=== PATIENT | female | born 1970 | race Two or more races ===

== ENCOUNTER 2018-08-31 14:46 | Emergency (ER) | payer OTHER ==
[2018-08-31 15:02] VITALS: BMI 25.2
[2018-08-31] MEDS ORDERED: LISINOPRIL 10 MG TABLET (FP) PO ONE (15:15)
[2018-08-31] MEDS ORDERED: ACETAMINOPHEN 500 MG TABLET (FP) PO ONE (15:15)
[2018-08-31] MEDS ORDERED: METOCLOPRAMIDE HCL INJECTION 10 MG/2 ML VIAL IVPUSH ONE (15:15)
[2018-08-31] MEDS ORDERED: SODIUM CHLORIDE 1,000 ML IV STA (15:16)
[2018-08-31] MEDS ORDERED: LISINOPRIL 5 MG TABLET (FP) ONE (15:19)
[2018-08-31] MEDS ORDERED: METOCLOPRAMIDE HCL INJECTION 10 MG/2 ML VIAL ONE (15:19)
--- NOTE | 2018-08-31 15:21 | PDOC ---
History of Present Illness - General Chief Complaint: Headache Stated Complaint: Blood Pressure Problem Time Seen by Provider: 08/31/18 14:49 History Source: Patient Exam Limitations: No Limitations - History of Present Illness Initial Comments: 48 y/o F hx of HTN and migraine presents with mild generalized SANDHU that started around 9 PM today and progressively became worse around 11 AM. She took 2 Advils without much relief in pain so she went to see her PCP, Dr. Tinajero, and was sent to ED immediately as her BP there was around 180/110. 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 Also mentions having slight blurred vision. Patient also mentions having intermittent substernal CP over the past month which is non-exertional; states she did not have any chest pain today. Otherwise she denies fever, sob, abd pain, n/v, numbness, tingling, weakness of extremities, dizziness, gait changes. 08/31/18 15:30 Past History - Past Medical History Allergies/Adverse Reactions: Allergies Allergy/AdvReac Type Severity Reaction Status Date / Time No Known Allergies Allergy Unverified 08/31/18 15:02 Home Medications: Ambulatory Orders Cholecalciferol (Vitamin D3) [Vitamin D3] 50,000 unit PO WEEKLY 08/31/18 Lisinopril 10 mg PO DAILY 08/31/18 Oxycodone HCl 10 mg PO BID 08/31/18 COPD: No HTN: Yes Other medical history: Migraine headache - Suicide/Smoking/Psychosocial Hx Smoking History: Current every day smoker Number of Cigarettes Smoked Daily: 2 Information on smoking cessation initiated: No Hx Alcohol Use: No (denies) Drug/Substance Use Hx: No (denies) Substance Use Type: None Review of Systems - Review of Systems Constitutional: No: Chills, Fever HEENTM: Yes: Double Vision Respiratory: No: Shortness of Breath Cardiac (ROS): Yes: Chest Pain ABD/GI: No: Nausea, Vomiting Neurological: Yes: See HPI *Physical Exam - Vital Signs Last Vital Signs Temp Pulse Resp BP Pulse Ox 98.8 F 84 18 183/101 H 100 08/31/18 14:54 08/31/18 14:54 08/31/18 14:54 08/31/18 14:54 08/31/18 14:54 - Physical Exam General Appearance: Yes: Other (Patient in mild distress as states the light is bothering her) HEENT: positive: YUAN Respiratory/Chest: positive: Lungs Clear, Normal Breath Sounds. negative: Respiratory Distress Cardiovascular: positive: Regular Rhythm, Regular Rate, S1, S2. negative: Murmur Gastrointestinal/Abdominal: positive: Normal Bowel Sounds. 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 negative: Abnormal Cranial NS, EOM Palsy, Facial Droop, Numbness, Sensory Deficit, Confused, Disoriented Heart Score/ECG Review #1 General ECG Interpretation: Sinus Rhythm, Normal Rate, Normal Intervals, No acute ischemic changes ED Treatment Course - LABORATORY CBC & Chemistry Diagram: 08/31/18 15:25 08/31/18 15:25 Medical Decision Making - Medical Decision Making 48 y/o F hx of migraine and HTN with headache likely due to uncontrolled HTN. Patient with no focal deficits so less concerned for stroke. Will obtain basic labs to check for end organ damage. Will give NS bolus x1, Tylenol, Reglan, Lisinopril and reassess. Patient also with complain of intermittent CP x1 month. Given CP is nonexertional and nonischemic EKG, less suspicious for acute VA. Unlikely CHF given no sign of fluid overload; unlikely pneumonia given no fever or cough; PE also unlikely given no risk factors and PERC score is 0. Patient with no CP today. Will obtain troponin and CXR given risk factors of HTN and smoking history. 08/31/18 15:39 Repeat BP was 133/73 Patient feeling a lot better with improvement in headache CXR and CT head were negative Labs were unremarkable Advised patient to follow-up with her PCP Rx for Lisinopril 10 mg sent to patient's pharmacy 08/31/18 18:20 *DC/Admit/Observation/Transfer Diagnosis at time of Disposition: Elevated blood pressure reading - Referrals Referrals: Obdulia Tinajero MD [Primary Care Provider] - - Patient Instructions - Post Discharge Activity
--- NOTE | 2018-08-31 15:40 | PDOC ---
*Physical Exam - Vital Signs Last Vital Signs Temp Pulse Resp BP Pulse Ox 98.8 F 84 18 183/101 H 100 08/31/18 14:54 08/31/18 14:54 08/31/18 14:54 08/31/18 14:54 08/31/18 14:54 - Physical Exam Comments: 08/31/18 15:37 Blood pressure 183/109, heart rate normal, O2 sat normal. Patient is well-appearing, conversant, eyes open with slight cough Sinuses are nontender, pupils are equal round reactive to light, extraocular movements are intact, no nystagmus Speech is clear, no carotid bruits, neck is supple Heart is regular without murmurs, lungs are clear, abdomen benign, no edema NEURO: Mental status: The patient is alert and oriented x3. Cranial nerves: Cranial nerves II through XII are intact Motor: The upper extremities are 5 over 5 in all muscle groups. The lower extremities are 5 over 5 in all muscle groups. No pronator drift. Sensation: Sensation is intact to light touch throughout. Cerebellar: Ipopeh-lwfonf-opbr is normal in both upper extremities. Heel-knee- venegas is normal in both lower extremities. Reflexes: 2+ and symmetric in the upper and lower extremities. Gait: Normal. Heel and toe walking are normal. Tandem gait is normal. ED Treatment Course - Medications Given in the ED: ED Medications Discontinued Medications Generic Name Dose Route Start Last Admin Trade Name Freq PRN Reason Stop Dose Admin Acetaminophen 1,000 mg 08/31/18 15:15 08/31/18 15:35 Tylenol - PO 08/31/18 15:16 1,000 mg ONCE ONE Administration Lisinopril 10 mg 08/31/18 15:15 08/31/18 15:35 Prinivil PO 08/31/18 15:16 10 mg ONCE ONE Administration Metoclopramide HCl 10 mg 08/31/18 15:15 08/31/18 15:35 Reglan Injection - IVPUSH 08/31/18 15:16 10 mg ONCE ONE Administration Medical Decision Making - Medical Decision Making 08/31/18 15:38 48-year-old female with History of hypertension, noncompliant with medications for 1 month, sent from PCP office after presenting for routine follow-up visit with complaint of headache. Hypertensive in the emergency department, neurologically intact, but complaining of some blurry vision today. Labs including troponin Chest x-ray, EKG CT head Dose her usual lisinopril, Reglan for headache and nausea Reassess *DC/Admit/Observation/Transfer Diagnosis at time of Disposition: Elevated blood pressure reading - Referrals Referrals: Obdulia Tinajero MD [Primary Care Provider] - - Patient Instructions - Post Discharge Activity
[2018-08-31 15:42] LABS: BASO % 1.3 % (0-2.0); EOS % 7.9 % (0-4.5); HEMATOCRIT 38.3 % (32.4-45.2); HEMOGLOBIN 12.7 GM/dL (10.7-15.3); LYMPH % 39.8 % (8-40); MCH 28.5 pg (25.7-33.7); MCHC 33.2 g/dl (32.0-36.0); MEAN CELL VOLUME 85.8 fl (80-96); MEAN PLT VOLUME 8.4 fl (7.5-11.1); MONO % 5.4 % (3.8-10.2); NEUT % 45.6 % (42.8-82.8); PLATELET COUNT 223 K/MM3 (134-434); RBC 4.46 M/mm3 (3.60-5.2); RDW 14.3 % (11.6-15.6); WHITE BLOOD COUNT 4.5 K/mm3 (4.0-10.0)
[2018-08-31 16:07] LABS: ANION GAP 8 MMOL/L (8-16); BLOOD UREA NITROGEN 17 mg/dL (7-18); CALCIUM 8.4 mg/dL (8.5-10.1); CHLORIDE 109 mmol/L (98-107); CO2 26 mmol/L (21-32); CREATININE 0.7 mg/dL (0.55-1.3); GLUCOSE,RANDOM 76 mg/dL (74-106); POTASSIUM 3.7 mmol/L (3.5-5.1); SODIUM 143 mmol/L (136-145)
--- NOTE | 2018-08-31 18:30 | PDOC ---
*Physical Exam - Vital Signs Last Vital Signs Temp Pulse Resp BP Pulse Ox 98.8 F 78 17 133/73 98 08/31/18 14:54 08/31/18 16:44 08/31/18 16:44 08/31/18 16:44 08/31/18 16:44 ED Treatment Course - LABORATORY CBC & Chemistry Diagram: 08/31/18 15:25 08/31/18 15:25 - ADDITIONAL ORDERS Additional order review: Laboratory Results 08/31/18 08/31/18 15:25 15:25 Sodium 143 Potassium 3.7 Chloride 109 H Carbon Dioxide 26 Anion Gap 8 BUN 17 Creatinine 0.7 Creat Clearance w eGFR > 60 Random Glucose 76 Calcium 8.4 L Troponin I < 0.02 Serum , Qual Negative 08/31/18 15:25 RBC 4.46 MCV 85.8 MCHC 33.2 RDW 14.3 MPV 8.4 Neutrophils % 45.6 Lymphocytes % 39.8 Monocytes % 5.4 Eosinophils % 7.9 H Basophils % 1.3 - RADIOLOGY Radiology Studies Ordered: Category Date Time Status HEAD CT WITHOUT CONTRAST [CT] Stat CT Scan 08/31/18 17:25 Completed CHEST PA & LAT [RAD] Stat Radiology 08/31/18 16:16 Completed - Medications Given in the ED: ED Medications Discontinued Medications Generic Name Dose Route Start Last Admin Trade Name Nicky PRN Reason Stop Dose Admin Acetaminophen 1,000 mg 08/31/18 15:15 08/31/18 15:35 Tylenol - PO 08/31/18 15:16 1,000 mg ONCE ONE Administration Sodium Chloride 1,000 mls @ 1,000 mls/hr 08/31/18 15:16 08/31/18 15:35 Normal Saline - IV 08/31/18 16:15 1,000 mls/hr ASDIR STA Administration Lisinopril 10 mg 08/31/18 15:15 08/31/18 15:35 Prinivil PO 08/31/18 15:16 10 mg ONCE ONE Administration Metoclopramide HCl 10 mg 08/31/18 15:15 08/31/18 15:35 Reglan Injection - IVPUSH 08/31/18 15:16 10 mg ONCE ONE Administration *DC/Admit/Observation/Transfer Diagnosis at time of Disposition: Elevated blood pressure reading - Discharge Dispostion Disposition: HOME Condition at time of disposition: Improved Decision to Admit order: No - Prescriptions Prescriptions: Lisinopril 10 mg PO DAILY #30 tablet - Referrals Referrals: Obdulia Tinajero MD [Primary Care Provider] - 1 week - Patient Instructions Printed Discharge Instructions: Essential Hypertension Additional Instructions: Thank you for choosing [facility]. It was a pleasure taking care of you. Be sure to follow-up with your primary care doctor within a week Be sure to take your blood pressure medications as prescribed. Make sure you check your blood pressure daily at home Return to the Emergency Department if your symptoms worsen or persist, you have shortness of breath, chest pain, severe abdominal pain, vomiting, dizziness, weakness of extremities (arms and/or legs), changes in vision or walking, slurred speech, drooping of face or other concerning symptoms. - Post Discharge Activity
[2018-08-31 18:50] VITALS: BP 144/89; PULSE 72; TEMP 98.2
--- NOTE | 2018-09-01 11:13 | EKG ---
Test Reason : Blood Pressure : / mmHG Vent. Rate : 070 BPM Atrial Rate : 070 BPM P-R Int : 140 ms QRS Dur : 080 ms QT Int : 378 ms P-R-T Axes : 051 029 017 degrees QTc Int : 408 ms NORMAL SINUS RHYTHM NORMAL ECG WHEN COMPARED WITH ECG OF 17-APR-2010 08:49, SINUS RHYTHM HAS REPLACED ATRIAL FLUTTER Confirmed by ROB ESPINAL, ZIA ([id number]) on 09/01/2018 11:12:55 AM Referred By: Confirmed By:ZIA RIVAS MD
== END 2018-08-31 18:40 | disposition home or self-care (01) ==
LOC: JER 14:46
PROC: 3E033GC Introduction of Other Therapeutic Substance into Peripheral Vein, Percutaneous Approach (ICD-10-PCS; principal; 2018-08-31)
DX: I10 Essential (primary) hypertension (principal); Z86.69 Personal history of other diseases of the nervous system and sense organs; Z91.14 Patient's other noncompliance with medication regimen
CPT/HCPCS: 36415; 70450-TC; 71046-TC-FY; 80048; 84484; 84703; 85025; 93005; 93010; 96374; 99283-25; J7030

== ENCOUNTER 2023-02-15 22:40 | Emergency (ER) | payer OTHER ==
[2023-02-15 22:49] VITALS: BP 165/100; PULSE 142; RESP 18; TEMP 98.3; BMI 24.5
[2023-02-15] MEDS ORDERED: morphine CARPU-JECT 4 MG/1 ML DISP.SYRIN IVPUSH ONE (23:19)
[2023-02-15] MEDS ORDERED: ACETAMINOPHEN 1000 MG/100 ML BAG IVPB ONE (23:19)
[2023-02-15] MEDS ORDERED: SODIUM CHLORIDE 0.9% 500 ML INFUS.BAG IV ONE (23:19)
[2023-02-15] MEDS ORDERED: morphine SULFATE 4 MG/ML VIAL ONE (23:31)
[2023-02-15] MEDS ORDERED: ACETAMINOPHEN INJECTION 100 ML IVPB ONE (23:31)
[2023-02-15 23:56] LABS: BASO % 0.9 % (0-2.0); EOS % 3.5 % (0-4.5); HEMATOCRIT 37.6 % (32.4-45.2); HEMOGLOBIN 12.5 GM/dL (10.7-15.3); LYMPH % 34.1 % (8-40); MCH 27.8 pg (25.7-33.7); MCHC 33.3 g/dl (32.0-36.0); MEAN CELL VOLUME 83.5 fl (80-96); MEAN PLT VOLUME 7.6 fl (7.5-11.1); MONO % 5.9 % (3.8-10.2); NEUT % 55.6 % (42.8-82.8); PLATELET COUNT 290 10^3/uL (134-434); RBC 4.51 M/mm3 (3.60-5.2); RDW 13.6 % (11.6-15.6); WHITE BLOOD COUNT 8.7 K/mm3 (4.0-10.0)
[2023-02-16 00:06] LABS: CALCIUM 9.9 mg/dL (8.5-10.1)
[2023-02-16 00:07] LABS: ALBUMIN 4.5 g/dl (3.4-5.0); BLOOD UREA NITROGEN 21.2 mg/dL (7-18); MAGNESIUM 2.1 mg/dL (1.8-2.4)
[2023-02-16 00:10] LABS: CREATININE 0.9 mg/dL (0.55-1.3)
[2023-02-16 00:11] LABS: BILIRUBIN,TOTAL 0.8 mg/dL (0.2-1); TOT PROT 8.5 g/dl (6.4-8.2)
[2023-02-16 01:44] LABS: PH,URINE 7.5 (5.0-8.0); URINE APPEARANCE CLEAR; URINE BILIRUBIN NEGATIVE (NEGATIVE); URINE COLOR YELLOW; URINE GLUCOSE (UA) NEGATIVE (NEGATIVE); URINE KETONE NEGATIVE (NEGATIVE); URINE LEUK ESTERASE NEGATIVE (NEGATIVE); URINE NITRITE NEGATIVE (NEGATIVE); URINE PROTEIN NEGATIVE (NEGATIVE); URINE UROBILINOGEN 0.2 mg/dL (0.2-1.0)
[2023-02-16] MEDS ORDERED: MAGNESIUM SULF 50% (8.12 MEQ/2 ML-1 GM VIAL) IVPB ONE (02:01)
[2023-02-16] MEDS ORDERED: POTASSIUM CHLORIDE ORAL LIQUID 20 MEQ/15 ML PO ONE (02:01)
[2023-02-16] MEDS ORDERED: POTASSIUM CHLORIDE ORAL LIQUID 20 MEQ/15 ML ONE (02:10)
[2023-02-16] MEDS ORDERED: POLYETHYLENE GLYCOL (HEALTHYLAX) 3350 17 GM PACKET PO ONE (02:15)
[2023-02-16] MEDS ORDERED: POLYETHYLENE GLYCOL (HEALTHYLAX) 3350 17 GM PACKET PO SCH (02:15)
== END 2023-02-16 03:00 | disposition home or self-care (01) ==
LOC: JER 22:40
PROC: 3E033NZ Introduction of Analgesics, Hypnotics, Sedatives into Peripheral Vein, Percutaneous Approach (ICD-10-PCS; principal; 2023-02-15)
PROC: 3E033GC Introduction of Other Therapeutic Substance into Peripheral Vein, Percutaneous Approach (ICD-10-PCS; 2023-02-15)
DX: R10.11 Right upper quadrant pain (principal); R00.0 Tachycardia, unspecified; K59.00 Constipation, unspecified; E87.6 Hypokalemia
CPT/HCPCS: 36415; 74177-TC; 80053; 81003; 83690; 83735; 84703; 85025; 87077; 87086; 99285-25; Q9967